=== PATIENT | male | born 1950 | race Hispanic/Latino ===

== ENCOUNTER 2018-05-20 15:02 | Emergency (ER) | payer OTHER ==
[2018-05-20 15:59] LABS: Absolute Lymphocytes (CBC) 1.6 K/uL (0.7-4.9); Absolute Monocytes 0.5 K/uL (0.1-1.3); Absolute Neutrophil 5.1 K/uL (1.8-8.0); Eosinophils % 1.5 % (0-4.4); Hematocrit 40.9 % (39.6-49.0); Lymphocytes % 21.7 % (15.3-44.8); MCH 29.7 pg (27.0-35.0); MCV 85.9 fL (80-100); MPV 10.2 fL (7.6-11.3); Monocytes % 6.7 % (3.3-12.3); RBC Red Blood Cell Count 4.76 M/uL (4.33-5.43)
[2018-05-20 16:04] LABS: Protime INR 0.96
[2018-05-20 16:13] LABS: Potassium 4.5 mmol/L (3.5-5.1)
[2018-05-20] MEDS ORDERED: INSULIN -REGULAR HUMAN 50 UNIT/0.5 ML ML ONE (16:38)
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
== END 2018-05-20 17:52 | disposition home or self-care (01) ==
LOC: ER 15:02
DX: S30.1XXA Contusion of abdominal wall, initial encounter (principal); E11.65 Type 2 diabetes mellitus with hyperglycemia; I10 Essential (primary) hypertension; V49.40XA Driver injured in collision with unspecified motor vehicles in traffic accident, initial encounter
CPT/HCPCS: 36415; 71260; 74177; 80048; 85025; 85610